=== PATIENT | female | born 2005 | race African-American/Black ===

== ENCOUNTER 2023-11-30 19:59 | Emergency (ER) | payer SELFPAY ==
[~2023-11-30] VITALS: Ht 157.5 cm; Wt 93.0 kg
[2023-11-30 20:03] VITALS: BP 118/72; PULSE 73; RESP 16; TEMP 97.7; O2SAT 98
[2023-11-30] MEDS ORDERED: ONDANSETRON HCL 4MG/2ML INJ IV ONE (20:15)
[2023-11-30] MEDS ORDERED: SODIUM CHLORIDE 0.9% 1,860 ML IV ONE (20:15)
== END 2023-11-30 20:36 | disposition home or self-care (01) ==
LOC: ER 19:59
DX: R11.2 Nausea with vomiting, unspecified (principal); Z88.8 Allergy status to other drugs, medicaments and biological substances
CPT/HCPCS: 99283; J7030